=== PATIENT | female | born 1945 | race Caucasian/White ===

== ENCOUNTER 2019-03-06 18:33 | Observation (INO) ==
[2019-03-06] MEDS ORDERED: ONDANSETRON 4 MG/2 ML VIAL IV STA (18:59)
[2019-03-06] MEDS ORDERED: SODIUM CHLORIDE 0.9% 500 ML IV STA (18:59)
[2019-03-06 20:18] LABS: Basophils % 0.4 % (0.0-0.8); Eosinophils # 0.2 10*3/uL (0.0-0.87); Eosinophils % 3.2 % (0.00-10.9); Immature Granulocytes % 0.4 %; Immature Granulocytes Absolute 0.02 #; Lymphocytes # 1.1 10*3/uL (1.4-4.0); Lymphocytes % 22.1 % (21.3-54.2); Mean Corpuscular HGB Conc 32.3 GM/DL (32-36); Mean Corpuscular Volume 106.5 FL (87-102); Mean Platelet Volume 8.7 FL (9.6-12.0); Monocytes % 8.1 % (1.7-12.7); Neutrophils % 65.8 % (38.7-73.9); Platelet Count 197 T/CUMM (130-400); Red Blood Count 2.91 MC/CUMM (3.8-5.5); Red Cell Distribution Width 13.6 % (9.3-17.3); White Blood Count 4.9 T/CUMM (4-12)
[2019-03-06 20:29] LABS: INR 0.9; PT Patient Result 10.1 SECS (9.6-12.2)
[2019-03-06 20:47] LABS: Alanine Aminotransferase 60 U/L (13-56); Albumin 3.4 G/DL (3.4-5.0); Alkaline Phosphatase 133 U/L (45-117); Aspartate Amino Transferase 123 U/L (0-37); Blood Urea Nitrogen 22 MG/DL (7-18); Calcium 8.7 MG/DL (8.5-10.1); Estimated Glom Filtration Rate 53 ML/MIN; Glucose 83 MG/DL (74-106); Osmolality,Calculated 280.4 MOS/KG (273-304); Total Protein 6.9 G/DL (6.4-8.3)
[2019-03-06] MEDS ORDERED: DOCUSATE SODIUM 100 MG CAPSULE PO PRN (22:17)
[2019-03-06] MEDS ORDERED: ONDANSETRON 4 MG/2 ML VIAL IV PRN (22:17)
[2019-03-06] MEDS ORDERED: ACETAMINOPHEN 325 MG TABLET PO PRN (22:17)
[2019-03-06] MEDS ORDERED: DONEPEZIL 10 MG TABLET PO SCH (22:30)
[2019-03-06] MEDS ORDERED: ENOXAPARIN 40 MG/0.4 ML SYRINGE SUBCUT SCH (22:30)
[2019-03-06] MEDS ORDERED: MONTELUKAST 10 MG TABLET PO SCH (22:30)
[2019-03-06] MEDS ORDERED: MAGNESIUM SULF RIDER 4 GM in PREMIX 1 EACH IV PRN (23:11)
[2019-03-06] MEDS ORDERED: MAGNESIUM SULF RIDER 2 GM in PREMIX 1 EACH IV PRN (23:11)
[2019-03-06] MEDS ORDERED: SODIUM CHLORIDE 0.9% 1,000 ML IV SCH (23:30)
[2019-03-06] MEDS ORDERED: LORazepam 2 MG/1 ML VIAL IV PRN (23:55)
[2019-03-07] MEDS: MEMANTINE 10 MG TABLET PO SCH ×2 (00:10→08:20)
[2019-03-07] MEDS: FERROUS SULFATE 325 MG TABLET PO SCH ×2 (00:10→08:20)
[2019-03-07] MEDS: AZELASTINE NASAL 137 MCG/SPRAY 30 ML BOTTLE BOTH NARES SCH ×2 (00:13→13:17)
[2019-03-07 05:47] LABS: Basophils % 0.5 % (0.0-0.8); Eosinophils # 0.1 10*3/uL (0.0-0.87); Eosinophils % 3.4 % (0.00-10.9); Hematocrit 29.8 VOL% (35.7-47.0); Hemoglobin 9.5 GM/DL (12.0-16.0); Immature Granulocytes Absolute 0.04 #; Lymphocytes % 24.6 % (21.3-54.2); Mean Corpuscular HGB Conc 31.9 GM/DL (32-36); Mean Platelet Volume 8.9 FL (9.6-12.0); Monocytes % 8.6 % (1.7-12.7); Neutrophils % 61.9 % (38.7-73.9); Platelet Count 163 T/CUMM (130-400); Red Blood Count 2.71 MC/CUMM (3.8-5.5); Red Cell Distribution Width 13.5 % (9.3-17.3); White Blood Count 4.1 T/CUMM (4-12)
[2019-03-07] MEDS ORDERED: LEVOTHYROXINE 75 MCG TABLET PO SCH (06:00)
[2019-03-07 06:12] LABS: Calcium 8.1 MG/DL (8.5-10.1); Osmolality,Calculated 279.5 MOS/KG (273-304); Risk Ratio 1.35; Thyroid Stimulating Hormone 4.1 uIU/ml (0.358-3.74)
[2019-03-07] MEDS ORDERED: ASPIRIN EC 81 MG TABLET PO SCH (09:00)
[2019-03-07] MEDS ORDERED: CHOLECALCIFEROL 400 UNIT TABLET PO SCH (09:00)
[2019-03-07] MEDS ORDERED: SERTRALINE 25 MG TABLET PO SCH (09:00)
[2019-03-07] MEDS ORDERED: FUROSEMIDE 20 MG TABLET PO SCH (09:00)
[2019-03-07] MEDS ORDERED: ESTRADIOL 2 MG TABLET PO SCH (09:00)
[2019-03-07] MEDS ORDERED: CETIRIZINE 10 MG TABLET PO SCH (09:00)
[2019-03-07] MEDS ORDERED: CITALOPRAM 20 MG TABLET PO SCH (09:00)
[2019-03-07] MEDS ORDERED: FLUTICASONE 50 MCG NASAL SPRAY 16 GM BOTTLE BOTH NARES SCH (09:00)
[2019-03-07] MEDS ORDERED: POTASSIUM CHLORIDE 20 MEQ TABLET PO SCH (09:00)
[2019-03-07] MEDS ORDERED: FOLIC ACID 1 MG TABLET PO SCH (09:00)
[2019-03-07] MEDS ORDERED: CALCIUM (CARBONATE) 500 MG TABLET PO SCH (09:00)
[2019-03-07] MEDS ORDERED: MELOXICAM 7.5 MG TABLET PO SCH (10:30)
[2019-03-07] MEDS ORDERED: GABAPENTIN 300 MG CAPSULE PO SCH (10:30)
[2019-03-07 17:31] VITALS: BP 159/53
== END 2019-03-07 18:45 ==
LOC: EDBD → EDUNIT# → N.ED 18:33 → N.EDINP 18:33 → SUATTDRO 21:39 → N.4E 22:02
PROVIDERS: ADMIT Emergency Medicine; ATTEND Hospitalist